=== PATIENT | female | born 1995 | race Caucasian/White ===

== ENCOUNTER 2021-01-10 15:38 | Emergency (ER) | payer SELFPAY | END 2021-01-10 15:39 | disposition left against medical advice (07) | PROVIDERS: Emergency Provider Emergency Medicine | DX: Z04.9 Encounter for examination and observation for unspecified reason (principal); Z53.8 Procedure and treatment not carried out for other reasons | CPT/HCPCS: 99199 ==

== ENCOUNTER 2021-01-10 22:38 | Emergency (ER) | payer SELFPAY ==
[2021-01-10 23:20] VITALS: BP 113/52; PULSE 91; RESP 18; TEMP 36.4; O2SAT 100
--- NOTE | 2021-01-10 23:49 | ED.WOUNDLAC ---
HPI - Wound/Laceration General Chief Complaint: Wound/Laceration Stated Complaint: personal issue Time Seen by Provider: 01/10/21 23:22 Source: patient Mode of arrival: ambulatory Limitations: no limitations History of Present Illness HPI narrative: right labial redness and swelling x 4 days Onset (ago): day(s) (4) Location: genitals Place: home Context: accidental Associated symptoms: pain Related Data Allergies Allergy/AdvReac Type Severity Reaction Status Date / Time Latex, Natural Rubber Allergy Unknown Verified 01/10/21 23:28 Review of Systems Review of Systems: All systems reviewed & are unremarkable except as noted in HPI and below Genitourinary: Genitourinary: Reports genital lesions (right labial redness and swelling) PMFSH Past Medical History Medical History Abscess of Bartholin's gland Exam Const: General: no acute distress and alert Nutritional Appearance: well nourished Orientation/consciousness: patient oriented x3 HENMT: Head: normal to inspection Ears: external ears normal and TM's normal bilaterally General nose exam: Normal external nose present and Normal nares present Mouth: Yes moist mucous membranes Neck: Neck: normal visual inspection and no lymphadenopathy Chest: Chest palpation & inspection: normal inspection of the chest Resp: Effort & Inspection: normal respiratory effort Auscultation: clear to auscultation bilaterally Cardio: Rate: regular rate Rhythm: regular rhythm GI: GI Palp: Yes Soft to palpation (non-tender) Percussion: Yes normal to percussion Other: Right labial redness, tenderness and swelling. no pus drainage Back/Spine/Pelvis: Back: no CVA tenderness Skin: General skin exam: normal color Rashes: no rashes Neuro: General: patient oriented x3, moves all extremities, no meningeal signs, no focal motor deficits and CN's II-XI intact bilaterally Extrem: General: normal to inspection and no pedal edema Psych: Appearance: grossly normal and well kempt Mental Status: mental status grossly normal Affect: normal affect Attitude: cooperative Course Course Emergency Course: Pt was stable in the ED. For home with referral to Photogrammetric Technician MD for abscess I and and marsupialization Reevaluation(s) Date: 01/10/21 Time: 23:57 Vital Signs Vital signs: Vital Signs Temperature 36.4 C L 01/10/21 23:20 Pulse Rate 91 01/10/21 23:20 Respiratory Rate 18 01/10/21 23:20 Blood Pressure 113/52 L 01/10/21 23:20 Pulse Oximetry 100 01/10/21 23:20 Temperature 36.4 C L 01/10/21 23:20 Pulse Rate 91 01/10/21 23:20 Respiratory Rate 18 01/10/21 23:20 Blood Pressure 113/52 L 01/10/21 23:20 Pulse Oximetry 100 01/10/21 23:20 Critical Care Time Critical Care Time Critical Care Time: No Total Critical Care Time: 0 Discharge Plan Discharge Clinical Impression: Abscess of Bartholin's gland Patient Disposition: Home, Self-Care Condition: Stable Instructions: Antibiotic Form, Abscess (ED), Bartholin Cyst (ED) Additional Instructions: Home. May RTC prn. PMD in 1-2 days. Rx below. Prescriptions: New sulfamethoxazole-trimethoprim [Bactrim DS] 800-160 mg tablet 1 tablet PO Q12H Qty: 20 RF: 0 ibuprofen 800 mg tablet 800 mg PO TID Qty: 20 RF: 0 omeprazole magnesium [Prilosec OTC] 20 mg tablet,delayed release (DR/EC) 20 mg PO BID Qty: 20 RF: 0 tramadol 50 mg tablet 50 mg PO Q8H PRN (Reason: pain) Qty: 6 RF: 0 Follow-up/Referrals: UNKNOWN,DOCTOR [Primary Care Provider] - Time of Disposition: 23:59
[2021-01-10] MEDS: KETOROLAC (*BKC) 60 MG/2 ML VIAL IM (23:55)
[2021-01-10] MEDS: cefTRIAXone 1 GM VIAL IM (23:56)
[2021-01-11] MEDS: LIDOCAINE HCL 1% LOCAL INJ 20 ML VIAL (00:02)
[2021-01-11 00:08] VITALS: BP 110/64; PULSE 88; RESP 20; TEMP 36.4; O2SAT 98
== END 2021-01-11 00:10 | disposition home or self-care (01) ==
PROVIDERS: Emergency Provider Emergency Medicine
DX: N75.1 Abscess of Bartholin's gland (principal)
CPT/HCPCS: 96372; 99283; 99284; J0696; J1885

== ENCOUNTER 2021-11-06 16:47 | Emergency (ER) | payer SELFPAY ==
--- NOTE | 2021-11-06 16:56 | ED.SKABFB ---
HPI - Skin/Abscess/Foreign Bdy General Chief complaint: Skin/Abscess/Foreign Body Stated complaint: thinks she has staff infection Time Seen by Provider: 11/06/21 16:58 Source: patient and RN notes reviewed Mode of arrival: ambulatory Limitations: no limitations History of Present Illness HPI narrative: patient states that she had an abscess on her left buttock for 10 days. She drained it at home and got a significant amount of purulent drainage from the abscess. She says it has been healing well but then yesterday she had a fever to 101. Her boyfriend thought she should have wound checked out since she had a fever recently. She says that it is healing well and is no longer tender is no longer painful. There is no drainage. She denies any other symptoms that could be associated with the fever such as cough, sore throat, nausea vomiting, ear pain, or any other abscesses. complaint: abscess/boil Onset (ago): day(s) (10) Location: buttocks Severity: mild Quality: burning and dull Pain Consistency: now resolved Relieving factors: none Associated symptoms: fever ( Yesterday) Treatments prior to arrival: attempted to drain pus at home Related Data Home Medications Medication Instructions Recorded Confirmed No Home Medications 11/06/21 11/06/21 Allergies Allergy/AdvReac Type Severity Reaction Status Date / Time Latex, Natural Rubber Allergy Unknown Verified 11/06/21 17:13 Review of Systems Review of Systems: All systems reviewed & are unremarkable except as noted in HPI and below PMFSH Past Medical History Medical History Abscess of Bartholin's gland Exam Const: General: healthy appearing, no acute distress and alert Nutritional Appearance: well nourished and thin Orientation/consciousness: patient oriented x3 Limitations: no limitations Other: female nurse in room during examination. HENMT: Head: normal to inspection Ears: external ears normal Eyes: Conjunctivae: conjunctivae normal Pupils: Equal, round and reactive pupils present EOM: EOMs intact bilaterally Neck: Neck: normal visual inspection Resp: Effort & Inspection: normal respiratory effort Auscultation: clear to auscultation bilaterally Cardio: Rate: regular rate Rhythm: regular rhythm GI: Auscultation: normal bowel sounds Back/Spine/Pelvis: Cervical Spine: cervical ROM normal Thoracic/Lumbar Spine: thoraco-lumbar ROM normal Skin: General skin exam: normal color Rashes: no rashes Other: Patient has a healing abscess on her left inferior medial buttock. Proximally 2 cm in diameter. There is no organized abscess. Mild normal healing of erythema surrounding central area where there is good epithelialized dermal tissue where the abscess was drained. There is no increased warmth and is nontender when palpated. Neuro: General: patient oriented x3, moves all extremities, no focal motor deficits and CN's II-XI intact bilaterally Speech: normal speech Gait exam (Neuro): Normal gait present Extrem: General: normal to inspection and no clubbing, cyanosis or edema Psych: Mental Status: mental status grossly normal Affect: normal affect Attitude: cooperative Course Vital Signs Vital signs: Vital Signs Temperature 36.4 C L 11/06/21 17:07 Pulse Rate 84 11/06/21 17:07 Respiratory Rate 20 11/06/21 17:07 Blood Pressure 101/66 11/06/21 17:07 Pulse Oximetry 100 11/06/21 17:07 Oxygen Delivery Room Air 11/06/21 17:07 Temperature 36.4 C L 11/06/21 17:07 Pulse Rate 84 11/06/21 17:07 Respiratory Rate 20 11/06/21 17:07 Blood Pressure 101/66 11/06/21 17:07 Pulse Oximetry 100 11/06/21 17:07 Oxygen Delivery Room Air 11/06/21 17:07 Discharge Plan Discharge Clinical Impression: Wound check, abscess Patient Disposition: Home, Self-Care Condition: Stable Instructions: Abscess (ED) Prescriptions: No Action No Home Medica
[2021-11-06 17:07] VITALS: BP 101/66; PULSE 84; RESP 20; TEMP 36.4; O2SAT 100
== END 2021-11-06 17:20 | disposition home or self-care (01) ==
PROVIDERS: Emergency Provider Emergency Medicine
DX: L02.91 Cutaneous abscess, unspecified (principal); Z48.00 Encounter for change or removal of nonsurgical wound dressing
CPT/HCPCS: 99282

== ENCOUNTER 2023-10-04 19:11 | Emergency (ER) | payer SELFPAY ==
[2023-10-04 19:17] VITALS: BP 119/74; PULSE 77; RESP 16; TEMP 36.8; O2SAT 100
--- NOTE | 2023-10-04 19:17 | ED.SKABFB ---
HPI - Skin/Abscess/Foreign Bdy General Chief complaint: Skin/Abscess/Foreign Body Stated complaint: Bee Sting Time Seen by Provider: 10/04/23 19:17 Source: patient Mode of arrival: ambulatory Limitations: no limitations History of Present Illness HPI narrative: 28 yo F presents with c/o swelling to L eye from bee sting. Bee sting happened approx. 1 hr ago. 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 States she feels fine so she did not use it. did not take benadryl prior to arrival. All systems reviewed and negative except as noted above. Related Data Allergies Allergy/AdvReac Type Severity Reaction Status Date / Time bee venom protein (honey bee) Allergy Anaphylactic Verified 10/04/23 19:23 [bees] Shock Latex, Natural Rubber Allergy Unknown Verified 10/04/23 19:23 Review of Systems Review of Systems: CONSTITUTIONAL: Denies fever, chills, or sweats. EYES: Denies visual changes, redness, or discharge. ENT: Denies rhinorrhea, congestion, sore throat, or otalgia. CARDIOVASCULAR: Denies chest pain, palpitations, or edema. RESPIRATORY: Denies cough or dyspnea. GASTROINTESTINAL: Denies abdominal pain, nausea, vomiting, or diarrhea. GENITOURINARY: Denies dysuria or hematuria. SKIN: Denies rash or itching. Reports swelling to eye from bee sting. MUSCULOSKELETAL: Denies back pain, joint pain, or myalgia. NEUROLOGIC: Denies headache, numbness, or weakness. PSYCHIATRIC: Denies anxiety or depression. All other systems reviewed are negative, except as documented in HPI. PMFSH Past Medical History Medical History Abscess of Bartholin's gland Comments At time of signature, agree with nursing past medical, surgical, social and family history. There is no relevant family history pertinent to the presenting complaint. Exam Narrative: GENERAL: This is a well-nourished, well-developed patient, in no apparent distress. HEAD: normocephalic, atraumatic. EYES: PERRL. Sclera clear/white. Vision is grossly intact. erythema and swelling to outer corner of L eye EARS: External ears normal NOSE: External nose normal NECK: Neck supple, non-tender without lymphadenopathy, masses or thyromegaly. CARDIOVASCULAR: Regular rate and rhythm without murmurs, gallops, or rubs. RESPIRATORY: Clear to auscultation. Breath sounds equal bilaterally. No wheezes, rales, or rhonchi. SKIN: warm, Dry, intact with no suspicious lesions or rash, good texture and turgor. NEURO: awake, alert, and oriented to person, place and time. There were no obvious focal neurologic abnormalities. EXTREMITIES: No joint tenderness, effusion, or edema noted. Course Course Level of Care: Express Care Visit Vital Signs Vital signs: Reviewed MDM - Skin/Abscess/Foreign Bdy MDM Narrative Medical decision making narrative: Patient well-appearing. No difficulty breathing or swelling. Will discharge home with Benadryl and prednisone. Patient is aware of diagnosis, understands and agrees to treatment plan. Anticipatory guidance given. Patient agrees to follow-up as directed and is aware of reasons to seek care at the emergency department. Portions of this record may have been created with voice recognition software Discharge Plan Discharge Clinical Impression: Bee sting Qualifiers: Encounter type: initial encounter Injury intent: accidental or unintentional Qualified Code(s): T63.441A - Toxic effect of venom of bees, accidental (unintentional), initial encounter Patient Disposition: Home, Self-Care Condition: Stable Instructions: Insect Bite or Sting (ED) Additional Instructions: Take medications as prescribed. For any worsening symptoms go to the ER. Prescriptions: New prednisone 20 mg tablet 40 mg PO DAILY 4 Days Qty: 8 0RF diphenhydramine HCl [Benadryl] 25 mg capsule 50 mg PO Q6H PRN (Reason: allergic reaction) Qty: 30 0RF Follow-up/Referrals: PHYSICIAN,ON
[2023-10-04] MEDS: diphenhydrAMINE HCl CAP 25 MG CAPSULE 50 MG PO (19:29)
[2023-10-04] MEDS: predniSONE 20 MG TABLET 40 MG PO (19:29)
== END 2023-10-04 19:38 | disposition home or self-care (01) ==
PROVIDERS: Emergency Provider Nurse Practitioner Family
DX: T63.441A Toxic effect of venom of bees, accidental (unintentional), initial encounter (principal)
CPT/HCPCS: 99213; A9270; G0463; J7512

== ENCOUNTER 2023-11-26 09:15 | Emergency (ER) | payer SELFPAY ==
--- NOTE | ~2023-11-26 | CT_ITS ---
EXAMINATION: CT abdomen pelvis wo con DATE: 11/26/2023 10:27 INDICATION: Lower abdominal pain for one day TECHNIQUE: Computed tomography (CT) of the abdomen and pelvis was performed without intravenous contr ast. Automated exposure control and iterative reconstruction technique were employed. Exam dose: 188 .11 mGy-cm total exam DLP. COMPARISON: None. FINDINGS: Minimal discoid atelectasis or scar at the middle lobe. The lung bases are clear of infiltr ate or consolidation. Normal heart size. No pericardial or pleural effusion. There are gallstones. The gallbladder is not abnormally distended. No gallbladder wall thickening or pericholecystic fluid or fat stranding is noted. No bile duct or pancreatic duct dilatation is detect ed. No pancreatic mass lesion or calcification. Normal splenic size. Normal morphology of the adrenal glands. Subtle pinpoint nonobstructing mid right renal calculus. Approximately 3 mm nonobstructing lower pole left renal calculus. No left or right urinary tract calculus or hydroureteronephrosis. The urinary bladder is evacuated and not optimally evaluated as a result. Normal caliber of the abdominal aorta. No intraperitoneal or retroperitoneal or pelvic mass lesion or adenopathy is evident. No ascites. The uterus and adnexal areas are unremarkable. Normal appendiceal diameter without apparent periappendiceal inflammation. Posterior to the visualize d portion of the appendix in the right lateral pelvic area is an indeterminate approximately 3 x 4.8 mm calcification. Calcified appendicolith the tip of the appendix is not excluded. Recommend clinical correlation and possible short-term follow-up. No bowel obstruction, bowel wall thickening, pneumatosis or intraperitoneal free air is detected.. No bowel obstruction. Included skeletal structures are unremarkable. IMPRESSION: Indeterminate 3 x 4.8 mm right lateral pelvic calcification, of uncertain clinical signi ficance. This is situated near the appendix. A calcified appendicolith is not excluded. Recommend cli nical correlation and perhaps short-term clinical and if necessary CT follow-up. 3 mm nonobstructing lower pole left renal calculus Subtle pinpoint nonobstructing mid right renal calculus Cholelithiasis Reviewed, dictated and finalized at [facility]. Reviewed, dictated and finalized at [facility]. IMPRESSION: Indeterminate 3 x 4.8 mm right lateral pelvic calcification, of un certain clinical significance. This is situated near the appendix. A calcified appendicolith is not excluded. Recommend clinical correlation and perhaps short -term clinical and if necessary CT follow-up. 3 mm nonobstructing lower pole left renal calculus Subtle pinpoint nonobstructing mid right renal calculus Cholelithiasis
[2023-11-26 09:15] VITALS: BP 108/68; PULSE 80; RESP 16; TEMP 36.4; O2SAT 99
--- NOTE | 2023-11-26 09:29 | ED.ABDPAIN ---
HPI - Abdominal Pain General Chief Complaint: Abdominal Pain Stated Complaint: abdominal pain Source: patient Mode of arrival: ambulatory Limitations: no limitations History of Present Illness HPI narrative: Patient is a 28-year-old female that was recently incarcerated and now out for the past few days having increased alcohol and drug use. She is having lower abdominal pain in the right lower quadrant and suprapubic region. This started this morning. She had some overnight nausea and vomiting with alcohol use. MD elicited complaint: abdominal pain Pertinent past history: other ( Alcohol and drug use) Onset (ago): day(s) (1) Pain Consistency: intermittent Location: RLQ and suprapubic Severity: mild Pain scale (0-10): 2 Quality: cramping and sharp Radiation: none Migration to: no migration Exacerbating factors: nothing Relieving factors: nothing Context: confirms other ( she had a night of partying and use of drug and alcohol) Associated symptoms: nausea and vomiting Related Data Allergies Allergy/AdvReac Type Severity Reaction Status Date / Time bee venom protein (honey bee) Allergy Anaphylactic Verified 10/04/23 19:23 [bees] Shock Latex, Natural Rubber Allergy Unknown Verified 10/04/23 19:23 Review of Systems Review of Systems: All systems reviewed & are unremarkable except as noted in HPI and below Constitutional: Constitutional: Reports no additional constitutional complaints Eyes: Eyes: Reports no additional eye complaints ENT: Reports system reviewed and no additional complaints, except as documented Cardiovascular: Cardiovascular: Reports no additional cardiovascular complaints Respiratory: Respiratory: Reports no additional respiratory complaints Gastrointestinal: Gastrointestinal: Reports no additional gastrointestinal complaints Genitourinary: Genitourinary: Reports no additional female genitourinary complaints Musculoskeletal: Musculoskeletal: Reports no additional musculoskeletal complaints Integumentary/Breasts: Skin/Breast: Reports system reviewed and no additional complaints, except as docu Neurologic: Reports system reviewed and no additional complaints, except as documented Psychiatric: Psychiatric: Reports no additional psychiatric complaints Endocrine: Endocrine: Reports no additional endocrine complaints Hematologic/Lymphatic: Hematologic/Lymphatic: Reports no additional hematologic/lymphatic complaints Allergic/Immunologic: Allergic/Immunologic: Reports no additional allergic/immunologic complaints PMFSH Past Medical History Medical History Abscess of Bartholin's gland Social History Social History Substance use type: marijuana and unknown Exam Const: General: healthy appearing Nutritional Appearance: well nourished Orientation/consciousness: patient oriented x3 HENMT: Head: normal to inspection Ears: external ears normal Face/Nose/Sinus: Normal external nose present Eyes: Conjunctivae: conjunctivae normal Pupils: Equal, round and reactive pupils present EOM: EOMs intact bilaterally Neck: Neck: normal visual inspection Chest: Chest palpation & inspection: normal inspection of the chest Resp: Effort & Inspection: normal respiratory effort and not labored Auscultation: clear to auscultation bilaterally Cardio: Rate: regular rate Rhythm: regular rhythm Heart sounds: no murmurs GI: Inspection: non-distended GI Palp: Yes Soft to palpation, Yes Tenderness to palpation present (GI) ( suprapubic and right lower quadrant), No Guarding due to palpation present (GI), No Rigid due to palpation, No Hernia present, No Palpable mass present and No Rebound tenderness present Auscultation: normal bowel sounds : General: No bladder normal to palpation ( tender) Back/Spine/Pelvis: Back: no CVA tenderness Skin: General skin exam: normal color Rashes: no r
[2023-11-26 10:00] LABS: Bilirubin Urine Negative (Negative); Blood Urine 2+ (Negative); Color Urine Yellow (Yellow); Glucose Urine UA Negative (Negative); Ketones Urine Negative (Negative); Leukocyte Esterase Ur Trace LEU/UL (Negative); Nitrate Urine Negative (Negative); Protein Urine Negative (Negative); Specific Grav Ur >= 1.030 (1.010-1.020); Urobilinogen Urine 0.2 mg/dL (0.2-1.0)
[2023-11-26 10:01] LABS: Pregnancy On Board Control Positive; Urine Pregnancy Test Negative
[2023-11-26 10:07] LABS: Add Urine Microscopic? YES; Appearance Urine Cloudy (Clear); Bacteria Urine 2+ /hpf; Mucus Urine Heavy /lpf; Squamous Epithelial Cell Urine Many /hpf (Few); WBC Clumps Urine Present /hpf
[2023-11-26 10:20] LABS: Hematocrit 37.7 % (35.0-49.0); Hemoglobin 12.2 g/dL (12.0-15.0); Mean Corpuscular HGB Conc 32.4 g/dL (32-36); Mean Corpuscular Hemoglobin 28.2 pg (27.0-31.0); Mean Corpuscular Volume 87.1 fL (78.0-102.0); Mean Platelet Volume 10.5 fl (9.2-11.8); Platelet Count Result 206 K/mm3 (150-420); Red Blood Count 4.33 M/mm3 (4.20-5.40); Red Cell Distribution Width 13.8 % (11.6-14.4)
[2023-11-26 10:35] LABS: Alanine Aminotransferase 33 U/L (14-59); Albumin Level 3.2 g/dL (3.4-5.0); Alkaline Phosphatase 89 U/L (46-116); Anion Gap 10 mmol/L (4-12); Aspartate Amino Transferase 19 U/L (15-37); Bilirubin,Total 0.1 mg/dL (0.00-1.00); Blood Urea Nitrogen 10 mg/dL (7-18); Calcium 8.1 mg/dL (8.5-10.1); Carbon Dioxide 26 mmol/L (21-32); Chloride 106 mmol/L (98-108); Estimated CRCL calculation 112 ml/min; Estimated Glomerular Filt Rate > 60; Glucose 91 mg/dL (70-99); Lipase 60 U/L (16-77); Osmolality Calculated 293 mOsm/kg (285-295); Potassium 3.4 mmol/L (3.5-5.1); Sodium 142 mmol/L (136-145); Total Protein 6.4 g/dL (6.4-8.2)
[2023-11-26 10:38] LABS: Lactic Acid Reflex 1.3 mmol/L (0.4-2.0)
[2023-11-26 10:48] LABS: Band Neutrophils Percent 0 % (0-6); Lymphocytes Absolute Manual 2.12 K/mm3 (1.1-4.5); Lymphocytes Percent Manual 53 % (18-44); Neutrophils Absolute Manual 1.36 K/mm3 (1.7-7.2); Neutrophils Percent Manual 34 % (46-73); Total Cells Counted 100
[2023-11-26 10:49] LABS: Basophils Absolute Manual 0.08 K/mm3 (0-0.1); Basophils Percent Manual 2 % (0-1); Eosinophils Percent Manual 5 % (1-6); Large Platelets Present; Monocytes Absolute Manual 0.24 K/mm3 (0.1-0.90); Monocytes Percent Manual 6 % (3-9); Platelet Estimate Adequate (Adequate); Schistocytes None Seen
[2023-11-26] MEDS: CIPROFLOXACIN 500 MG TAB PO (10:58)
[2023-11-26] MEDS: POTASSIUM CHLORIDE 20 MEQ ER TABLET PO (10:58)
[2023-11-26 11:06] VITALS: BP 111/70; PULSE 78; RESP 20; O2SAT 97
--- NOTE | 2023-11-28 13:29 | PC.NURSE ---
FINAL URINE CULTURE RESULTS: ISOLATE 1 : GREATER THAN 100,000CFU/ML OF GROUP B STREP ISOLATED. PER DR PETER, NO CHANGE IN TREATMENT NEEDED.
== END 2023-11-26 11:06 | disposition home or self-care (01) ==
PROVIDERS: Emergency Provider Emergency Medicine
DX: N30.01 Acute cystitis with hematuria (principal)
CPT/HCPCS: 36415; 74176; 80053; 81001; 81025; 83605; 83690; 85025; 87077; 87086; 87088; 99284; A9270

== ENCOUNTER 2024-03-13 14:46 | Emergency (ER) | payer SELFPAY ==
[2024-03-13 14:50] VITALS: BP 101/72; PULSE 77; RESP 18; TEMP 36.7; O2SAT 98
--- NOTE | 2024-03-13 14:53 | ED.ABDPAIN ---
HPI - Abdominal Pain General Chief Complaint: Urogenital-Female Stated Complaint: ABDOMINAL PAIN Time Seen by Provider: 03/13/24 14:49 Source: patient Mode of arrival: ambulatory Limitations: no limitations History of Present Illness HPI narrative: 28-year-old female a history of drug and alcohol use, gallstones, right lower quadrant 3 X 4.8 mm pelvic calcification of unknown significance presents to the ED with -- bilateral flank and lower abdominal pain since 11/26/2023 when she presented to the ED here. No fever or chills. No nausea /vomiting / diarrhea. No dysuria hematuria. MD elicited complaint: abdominal pain Pertinent past history: kidney stones and other ( Pelvic calcification on the right side, gallstones) Onset (ago): week(s) Pain Consistency: intermittent Location: diffuse Severity: moderate Quality: aching Radiation: none Migration to: no migration Exacerbating factors: nothing Relieving factors: nothing Associated symptoms: denies other symptoms Related Data Date of Last Menstrual Period: 02/28/24 Patient : No Allergies Allergy/AdvReac Type Severity Reaction Status Date / Time bee venom protein (honey bee) Allergy Anaphylactic Verified 10/04/23 19:23 [bees] Shock Latex, Natural Rubber Allergy Unknown Verified 10/04/23 19:23 Review of Systems Review of Systems: All systems reviewed & are unremarkable except as noted in HPI and below Constitutional: Constitutional: Reports as per HPI and Reports no additional constitutional complaints Eyes: Eyes: Reports as per HPI and Reports no additional eye complaints ENT: Reports system reviewed and no additional complaints, except as documented and Reports as per HPI Cardiovascular: Cardiovascular: Reports as per HPI and Reports no additional cardiovascular complaints Respiratory: Respiratory: Reports as per HPI and Reports no additional respiratory complaints Gastrointestinal: Gastrointestinal: Reports as per HPI, Reports no additional gastrointestinal complaints and Reports abdominal pain Genitourinary: Genitourinary: Reports no additional female genitourinary complaints Musculoskeletal: Musculoskeletal: Reports no additional musculoskeletal complaints and Reports as per HPI Integumentary/Breasts: Skin/Breast: Reports system reviewed and no additional complaints, except as docu and Reports as per HPI Neurologic: Reports system reviewed and no additional complaints, except as documented and Reports as per HPI Psychiatric: Psychiatric: Reports no additional psychiatric complaints and Reports as per HPI Endocrine: Endocrine: Reports no additional endocrine complaints and Reports as per HPI Hematologic/Lymphatic: Hematologic/Lymphatic: Reports no additional hematologic/lymphatic complaints and Reports as per HPI Allergic/Immunologic: Allergic/Immunologic: Reports no additional allergic/immunologic complaints and Reports as per HPI [facility] Past Medical History Medical History (Updated 03/13/24 @ 16:26 by Casey Conte MD) Abscess of Bartholin's gland Gallstones Kidney stones Social History Social History Substance use type: marijuana and unknown Exam Narrative: vitals are stable Const: General: healthy appearing and no acute distress Nutritional Appearance: well nourished Orientation/consciousness: patient oriented x3 Limitations: no limitations HENMT: Head: normal to inspection Ears: external ears normal Face/Nose/Sinus: Normal external nose present Face and sinus: normal facial exam Mouth: Yes Normal oral and palatal mucosa present Throat: posterior oropharynx normal Eyes: Conjunctivae: conjunctivae normal Pupils: Equal, round and reactive pupils present EOM: EOMs intact bilaterally Direct Ophthalmoscopy: no photophobia Neck: Neck: normal visual inspection, no lymphadenopathy and no meningeal signs Chest: Chest palpation & inspection: normal inspection of the chest Resp: Effort & Inspection: normal respiratory effort Auscultation: clear to auscultation bilaterally Cardio: Rate: regular rate Rhythm: regular rhythm GI: GI Palp: Yes Soft to palpation Auscultation: normal bowel sounds Other: suprapubic tenderness without any rigidity /rebound : General: Yes no CVA tenderness Skin: General skin exam: normal color Rashes: no rashes Wounds: no wounds Neuro: General: patient oriented x3, moves all extremities, no meningeal signs, no focal motor deficits and CN's II-XI intact bilaterally Cranial nerves: Yes Nystagmus not present Speech: normal speech Gait exam (Neuro): Normal gait present Extrem: General: normal to inspection and no clubbing, cyanosis or edema Psych: Mental Status: mental status grossly normal Affect: normal affect Attitude: cooperative Course Course Emergency Course: lower abdominal pain / suprapubic tenderness-- blood work is negative Vital Signs Vital signs: Vital Signs Temperature 36.7 C 03/13/24 14:50 Pulse Rate 77 03/13/24 14:50 Respiratory Rate 18 03/13/24 14:50 Blood Pressure 101/72 03/13/24 14:50 Pulse Oximetry 98 03/13/24 14:50 Oxygen Delivery Room Air 03/13/24 14:50 Temperature 36.7 C 03/13/24 14:50 Pulse Rate 77 03/13/24 14:50 Respiratory Rate 18 03/13/24 14:50 Blood Pressure 101/72 03/13/24 14:50 Pulse Oximetry 98 03/13/24 14:50 Oxygen Delivery Room Air 03/13/24 14:50 MDM - Abdominal Pain MDM Narrative Medical decision making narrative: suprapubic tenderness Lab Data 03/13/24 15:09 03/13/24 15:09 Labs: Lab Results 03/13/24 03/13/24 Range/Units 14:50 15:09 WBC 5.1 (4.8-10.8) K/mm3 RBC 4.64 (4.20-5.40) M/mm3 Hgb 12.6 (12.0-15.0) g/dL Hct 39.6 (35.0-49.0) % MCV 85.3 (78.0-102.0) fL MCH 27.2 (27.0-31.0) pg MCHC 31.8 L (32-36) g/dL RDW 13.4 (11.6-14.4) % Plt Count 210 (150-420) K/mm3 MPV 11.0 (9.2-11.8) fl Immature Gran % (Auto) 0.2 H (0.0-0.0) % Neut % (Auto) 36.0 L (50.0-70.0) % Lymph % (Auto) 50.0 H (18.0-42.0) % [place] % (Auto) 10.6 (2.0-11.0) % Eos % (Auto) 2.0 (1.0-6.0) % Baso % (Auto) 1.2 H (0.0-1.0) % Lymph # (Auto) 2.55 (1.10-4.50) K/mm3 [place] # (Auto) 0.54 (0.10-0.90) K/mm3 Eos # (Auto) 0.10 (0.02-0.50) K/mm3 Baso # (Auto) 0.06 (0.00-0.10) K/mm3 Abs Immat Gran (auto) 0.01 H (0.00-0.00) K/mm3 Absolute Neuts (auto) 1.84 (1.70-7.20) K/mm3 Absolute Nucleated RBC 0.00 (0.00-0.00) K/mm3 Nucleated RBC % 0.0 (0-0.0) % Sodium 141 (136-145) mmol/L Potassium 4.6 (3.5-5.1) mmol/L Chloride 104 (98-108) mmol/L Carbon Dioxide 30 (21-32) mmol/L Anion Gap 7 (4-12) mmol/L BUN 8 (7-18) mg/dL Creatinine 0.71 (0.55-1.02) mg/dL Estim Creat Clear Calc 88 ml/min Estimated GFR > 60 (59 - ) Glucose 87 (70-99) mg/dL Calculated Osmolality 289 (285-295) mOsm/kg Lactic Acid 0.5 (0.4-2.0) mmol/L Calcium 9.1 (8.5-10.1) mg/dL Total Bilirubin 0.4 (0.00-1.00) mg/dL AST 21 (15-37) U/L ALT 20 (14-59) U/L Alkaline Phosphatase 59 (46-116) U/L Total Protein 6.6 (6.4-8.2) g/dL Albumin 3.6 (3.4-5.0) g/dL Lipase 48 (16-77) U/L Urine Color Yellow (Yellow) Urine Appearance Sl cloudy A (Clear) Urine pH 6.0 (5.0-8.0) Ur Specific [facility] >= 1.030 H (1.010-1.020) Urine Protein Trace H (Negative) Urine Glucose (UA) Negative (Negative) Urine Ketones Negative (Negative) Ur Blood (Man) Trace-intact H (Negative) Urine Nitrate Negative (Negative) Urine Bilirubin Negative (Negative) Urine Urobilinogen 0.2 (0.2-1.0) mg/dL Leukocyte Esterase Rfl Negative (Negative) DREA/UL Urine RBC None seen (0-2) /hpf Urine WBC None seen (0-3) /hpf Ur Squamous Epith Cells Many H (Few) /hpf Urine Bacteria Trace (None) /hpf Urine Mucus Moderate H /lpf Urine Test Negative Discharge Plan Discharge Clinical Impression: Suprapubic pain, acute Patient Disposition: Home, Self-Care Condition: Stable Instructions: Antibiotic Form, Abdominal Pain (ED) Patient Language: Senegalese Prescriptions: No Action ciprofloxacin HCl [Cipro] 500 mg tablet 500 mg PO BID 7 Days Qty: 14 0RF Follow-up/Referrals: UNKNOWN,DOCTOR [Primary Care Provider] - Time of Disposition: 16:26
[2024-03-13 15:09] LABS: Pregnancy On Board Control Positive; Urine Pregnancy Test Negative
[2024-03-13 15:13] LABS: Basophils Absolute Auto 0.06 K/mm3 (0.00-0.10); Basophils Percent Auto 1.2 % (0.0-1.0); Hematocrit 39.6 % (35.0-49.0); Hemoglobin 12.6 g/dL (12.0-15.0); Immature Granulocyte Absolute 0.01 K/mm3 (0.00-0.00); Immature Granulocyte Percent A 0.2 % (0.0-0.0); Lymphocytes Absolute Auto 2.55 K/mm3 (1.10-4.50); Mean Corpuscular HGB Conc 31.8 g/dL (32-36); Mean Corpuscular Hemoglobin 27.2 pg (27.0-31.0); Mean Corpuscular Volume 85.3 fL (78.0-102.0); Monocytes Absolute Auto 0.54 K/mm3 (0.10-0.90); Monocytes Percent Auto 10.6 % (2.0-11.0); Neutrophils Absolute Auto 1.84 K/mm3 (1.70-7.20); Platelet Count Result 210 K/mm3 (150-420); Red Blood Count 4.64 M/mm3 (4.20-5.40); Red Cell Distribution Width 13.4 % (11.6-14.4); White Blood Count 5.1 K/mm3 (4.8-10.8)
[2024-03-13 15:28] LABS: Alanine Aminotransferase 20 U/L (14-59); Albumin Level 3.6 g/dL (3.4-5.0); Alkaline Phosphatase 59 U/L (46-116); Anion Gap 7 mmol/L (4-12); Aspartate Amino Transferase 21 U/L (15-37); Bilirubin,Total 0.4 mg/dL (0.00-1.00); Blood Urea Nitrogen 8 mg/dL (7-18); Calcium 9.1 mg/dL (8.5-10.1); Carbon Dioxide 30 mmol/L (21-32); Chloride 104 mmol/L (98-108); Estimated CRCL calculation 88 ml/min; Estimated Glomerular Filt Rate > 60; Glucose 87 mg/dL (70-99); Lipase 48 U/L (16-77); Osmolality Calculated 289 mOsm/kg (285-295); Potassium 4.6 mmol/L (3.5-5.1); Sodium 141 mmol/L (136-145); Total Protein 6.6 g/dL (6.4-8.2)
[2024-03-13 15:31] LABS: Lactic Acid Reflex 0.5 mmol/L (0.4-2.0)
[2024-03-13 16:08] LABS: Add Urine Microscopic? YES; Appearance Urine Sl Cloudy (Clear); Bilirubin Urine Negative (Negative); Blood Urine Trace-intact (Negative); Color Urine Yellow (Yellow); Glucose Urine UA Negative (Negative); Ketones Urine Negative (Negative); Leukocyte Esterase Ur Negative LEU/UL (Negative); Nitrate Urine Negative (Negative); Protein Urine Trace (Negative); Specific Grav Ur >= 1.030 (1.010-1.020); Urobilinogen Urine 0.2 mg/dL (0.2-1.0)
[2024-03-13 16:11] LABS: Bacteria Urine Trace /hpf; Mucus Urine Moderate /lpf; RBC Urine None seen /hpf (0-2); Squamous Epithelial Cell Urine Many /hpf (Few); WBC Urine None seen /hpf (0-3)
[2024-03-13 16:31] VITALS: BP 104/81; PULSE 90; RESP 18; TEMP 36.6; O2SAT 100
== END 2024-03-13 16:31 | disposition home or self-care (01) ==
PROVIDERS: Emergency Provider Internal Medicine Critical Care Medicine
DX: R10.31 Right lower quadrant pain (principal)
CPT/HCPCS: 36415; 80053; 81001; 81025; 83605; 83690; 85025; 99283